=== PATIENT | female | born 1990 ===

== ENCOUNTER 2017-09-30 22:34 | Emergency (ER) | payer MEDICAID ==
[2017-09-30 23:01] VITALS: O2SAT 100
[2017-10-01 00:05] LABS: SQUAMOUS EPITHIAL 1 /hpf (0-5); URINE BILIRUBIN NEGATIVE (NEGATIVE); URINE BLOOD 3+ (NEGATIVE); URINE CLARITY Hazy (Clear); URINE COLOR Yellow (YELLOW); URINE GLUCOSE (UA) NORMAL (Normal); URINE LEUKOCYTE ESTERASE NEG Leu/uL (Negative); URINE PROTEIN 1+ mg/dL (NEGATIVE); URINE UROBILINOGEN NORMAL mg/dL (0.2-1.0)
[2017-10-01 00:46] LABS: HCG,QUALITATIVE URINE NEGATIVE (NEGATIVE)
--- NOTE | 2017-10-01 00:50 | C.PDOC ---
History Of Present Illness 26 year old female presents to the ER with a complaint of eye redness, purulent discharge, and irritation to both eyes for the past 4 days. Patient states she has been using left over eye drops at home that were prescribed 4 weeks ago to her by her PMD for similar c/o with no relief. Denies contact use, fever, or chills. Pt also c/o of suprapubic pain since onset of her menses 2 days ago but states pain is worsening, denies dysuria, fever, vomiting Time Seen by Provider: 09/30/17 23:08 Chief Complaint (Nursing): ENT Problem History Per: Patient History/Exam Limitations: no limitations Onset/Duration Of Symptoms: Days Current Symptoms Are (Timing): Still Present Recent travel outside of the [place]: No Past Medical History Reviewed: Historical Data, Nursing Documentation, Vital Signs Vital Signs: Last Vital Signs Temp 98 F 10/01/17 01:08 Pulse 80 10/01/17 01:08 Resp 14 10/01/17 01:08 BP 120/70 10/01/17 01:08 Pulse Ox 100 10/01/17 03:50 - Medical History PMH: Hypothyroidism Family History: States: Unknown Family Hx - Social History Hx Alcohol Use: No Hx Substance Use: No - Immunization History Hx Tetanus Toxoid Vaccination: No Hx Influenza Vaccination: No Hx Pneumococcal Vaccination: No Review Of Systems Constitutional: Negative for: Fever, Chills Eyes: Positive for: Redness, Other (FB sensation, Purulent discharge.) Genitourinary: Positive for: Vaginal Bleeding (menses), Pelvic Pain. Negative for: Dysuria Neurological: Negative for: Weakness, Numbness, Dizziness Physical Exam - Physical Exam Appears: Non-toxic, No Acute Distress Skin: Normal Color, Warm, Dry Head: Atraumatic, Normacephalic Eye(s): bilateral: PERRL, EOMI, Other (Cilary injection with dry discharge to lower eyelids, visual acuity 20/20) Nose: Normal Gastrointestinal/Abdominal: Normal Exam, Soft, No Tenderness Pelvic: Other (deferred) Neurological/Psych: Oriented x3 ED Course And Treatment O2 Sat by Pulse Oximetry: 100 (Room air) Pulse Ox Interpretation: Normal Progress Note: Patient also complains of cramps and wishes to have her urine checked, results were negative. Will discharge home with Rx and instructions to follow up with PMD or return if symptoms worsen. Disposition Counseled Patient/Family Regarding: Diagnosis, Need For Followup, Rx Given - Disposition Disposition: HOME/ ROUTINE Disposition Time: 00:48 Condition: CRITICAL Additional Instructions: Use eye drops as directed Tylenol or advil for period pain Follow up with pMD/ [employer] Return to ER if worse Prescriptions: Dexamethasone/Tobramycin [Tobradex 0.1%-0.3% 2.5 Ml] 1 drop OP BID #1 bottle Instructions: Menstrual Cramps (DC), Conjunctivitis (Noninfectious Pinkeye) (DC ) Forms: [employer] (Swedish) - Clinical Impression Clinical Impression: Allergic conjunctivitis, Dysmenorrhea - PA / [employer]KE[employer] / Resident Statement MD/DO has reviewed & agrees with the documentation as recorded. - Scribe Statement The provider has reviewed the documentation as recorded by the Scribe Bryce Laguna All medical record entries made by the Vinnyibsoo were at my direction and personally dictated by me. I have reviewed the chart and agree that the record accurately reflects my personal performance of the history, physical exam, medical decision making, and the department course for this patient. I have also personally directed, reviewed, and agree with the discharge instructions and disposition.
[2017-10-01 01:23] VITALS: BP 120/70; PULSE 80; RESP 14; TEMP 98
== END 2017-10-01 01:23 | disposition home or self-care (01) ==
LOC: C.ER 22:34
DX: H10.10 Acute atopic conjunctivitis, unspecified eye (principal); N94.6 Dysmenorrhea, unspecified

== ENCOUNTER 2018-06-07 18:16 | Emergency (ER) | payer MEDICAID ==
[2018-06-07 18:29] VITALS: BP 125/82; PULSE 80; RESP 17; TEMP 98.3; O2SAT 100
[2018-06-07 18:37] VITALS: BMI 26.9
--- NOTE | 2018-06-07 19:40 | C.PDOC ---
History Of Present Illness 27 year old female presents to the emergency department complaining of left sided lower back pain for 2 weeks. States pain is intermittent and dull in nature and is worse with movement. Reports she took Advil once and applied Bengay cream with no relief. Denies any numbness, weakness, or urinary symptoms. Time Seen by Provider: 06/07/18 19:04 Chief Complaint (Nursing): Back Pain History Per: Patient History/Exam Limitations: no limitations Onset/Duration Of Symptoms: Days (2), Intermittent Episodes Current Symptoms Are (Timing): Still Present Quality Of Discomfort: Dull Previous Symptoms: None Associated Symptoms: None Exacerbating Factor(s): Movement Past Medical History Reviewed: Historical Data, Nursing Documentation, Vital Signs Vital Signs: Last Vital Signs Temp 98.3 F 06/07/18 18:27 Pulse 80 06/07/18 18:27 Resp 17 06/07/18 18:27 BP 125/82 06/07/18 18:27 Pulse Ox 100 06/07/18 18:27 - Medical History PMH: Hypothyroidism Surgical History: No Surg Hx Family History: States: No Known Family Hx - Social History Hx Alcohol Use: No Hx Substance Use: No - Immunization History Hx Tetanus Toxoid Vaccination: No Hx Influenza Vaccination: No Hx Pneumococcal Vaccination: No Review Of Systems Gastrointestinal: Negative for: Nausea, Vomiting, Abdominal Pain, Diarrhea Genitourinary: Negative for: Dysuria, Incontinence, Hematuria Musculoskeletal: Positive for: Back Pain (left sided lower back pain ) Neurological: Negative for: Weakness, Numbness Physical Exam - Physical Exam Appears: Non-toxic, No Acute Distress Skin: Warm, Dry, No Rash Head: Normacephalic Eye(s): bilateral: Normal Inspection Nose: Normal Oral Mucosa: Moist Neck: Supple Chest: Symmetrical Cardiovascular: Rhythm Regular Respiratory: Normal Breath Sounds, No Rales, No Rhonchi, No Wheezing Back: No CVA Tenderness, Other (paralumbar and parathoracic muscular tenderness ) Extremity: Bilateral: Atraumatic, Normal Color And Temperature, Normal ROM Neurological/Psych: Oriented x3, Normal Speech, Normal Motor, Normal Sensation, Normal Reflexes Gait: Steady ED Course And Treatment O2 Sat by Pulse Oximetry: 100 (RA) Pulse Ox Interpretation: Normal Medical Decision Making Medical Decision Making: Plan - Tylenol 650mg PO - Valium 5mg PO - Motrin 600mg PO - UA UA negative Patient re-evaluated and reports pain is improving. She is ambulatory without signs of discomfort. Patient is stable for discharge with Rx Disposition Counseled Patient/Family Regarding: Diagnosis, Need For Followup, Rx Given - Disposition Referrals: Laurie Rayo MD [Medical Doctor] - Disposition: HOME/ ROUTINE Disposition Time: 20:19 Condition: IMPROVED Additional Instructions: Apply heat to area 15 minutes three times a day. Take Motrin as needed for pain every 6 hours, with food to not upset stomach. Take Flexeril for muscle pain and spasm, caution can cause drowsiness. Follow up with orthopedic if pain persists over one week. Prescriptions: Acetaminophen [Acetaminophen 8 Hour] 650 mg PO Q8 #24 tablet.er Cyclobenzaprine [Cyclobenzaprine HCl] 10 mg PO TID #30 tab Ibuprofen [Motrin] 600 mg PO Q8 #30 tab Instructions: Low Back Pain in Adults Forms: [facility] [employer] (Bulgarian) - POA Present On Arrival: None - Clinical Impression Clinical Impression: Low back pain - PA / [employer] / Resident Statement MD/DO has reviewed & agrees with the documentation as recorded. - Scribe Statement The provider has reviewed the documentation as recorded by the Scribe Nicol Crane All medical record entries made by the Vinnyibsoo were at my direction and per sonally dictated by me. I have reviewed the chart and agree that the record accurately reflects my personal performance of the history, physical exam, medical decision making, and the department course for this patient. I have also personally directed, reviewed, and agree with the discharge instructions and disposition.
[2018-06-07 19:43] LABS: SQUAMOUS EPITHIAL 3 /hpf (0-5); URINE BACTERIA OCC (<OCC); URINE BILIRUBIN NEGATIVE (NEGATIVE); URINE BLOOD NEGATIVE (NEGATIVE); URINE CLARITY Clear (Clear); URINE COLOR Yellow (YELLOW); URINE GLUCOSE (UA) NORMAL (Normal); URINE LEUKOCYTE ESTERASE NEG Leu/uL (Negative); URINE PROTEIN NEGATIVE (NEGATIVE); URINE UROBILINOGEN NORMAL mg/dL (0.2-1.0)
[2018-06-07 19:44] LABS: HCG,QUALITATIVE URINE NEGATIVE (NEGATIVE)
== END 2018-06-07 20:35 | disposition home or self-care (01) ==
LOC: C.ER 18:16
DX: M54.5 Low back pain (principal)